=== PATIENT | female | born 1975 | race Caucasian/White ===

== ENCOUNTER 2024-06-14 07:04 | Observation (INO) ==
--- NOTE | 2024-06-01 13:49 | PAT Medication Instructions ---
Medication Instructions Date of Service June 01, 2024 Home Medications Medical Marijuana Card 1 dose UD PRN arthritis/anxiety alprazolam 0.5 mg tablet (Xanax) 0.5 mg PO UD PRN Anxiety gxuvqskpym-hsnubiquwjyqc-pdcxzxzq 50 mg-300 mg-40 mg capsule 1 cap PO UD PRN Headache dicyclomine 20 mg tablet 20 mg PO QID folic acid 1 mg tablet 1 mg PO HS gabapentin 300 mg capsule 300 mg PO UD PRN neuropathy gabapentin 800 mg tablet 800 mg PO BID golimumab 50 mg/0.5 mL subcutaneous pen injector (Simponi) 50 mg subcut UD hydroxychloroquine 200 mg tablet 200 mg PO HS lidocaine 5 % topical patch 1 patch topical UD PRN Pain montelukast 10 mg tablet (Singulair) 10 mg PO HS ondansetron HCl 4 mg tablet 4 mg PO UD PRN Nausea pantoprazole 40 mg tablet,delayed release 40 mg PO BID promethazine 25 mg tablet 25 mg PO HS rosuvastatin 10 mg tablet 10 mg PO HS sertraline 150 mg capsule 150 mg PO HS tizanidine 4 mg tablet 4 mg PO HS Muscle Spasm tretinoin 0.025 % topical cream 1 applic topical HS Continue as directed lidocaine 5 % topical patch 1 patch topical UD PRN Pain (avoid placement near surgery site prior to surgery) ASK your surgeon for instructions hqpghdlxzh-zljxywjfauwak-endkvxcl 50 mg-300 mg-40 mg capsule 1 cap PO UD PRN Headache golimumab 50 mg/0.5 mL subcutaneous pen injector (Simponi) 50 mg subcut UD STOP taking 24 hours before surgery tretinoin 0.025 % topical cream 1 applic topical HS DO NOT take the morning of surgery Medical Marijuana Card 1 dose UD PRN arthritis/anxiety dicyclomine 20 mg tablet 20 mg PO QID Take morning of surgery With a small sip of water, OTHERWISE NOTHING TO EAT OR DRINK AFTER MIDNIGHT: alprazolam 0.5 mg tablet (Xanax) 0.5 mg PO UD PRN Anxiety (if needed) dicyclomine 20 mg tablet 20 mg PO QID gabapentin 300 mg capsule 300 mg PO UD PRN neuropathy (if needed) gabapentin 800 mg tablet 800 mg PO BID ondansetron HCl 4 mg tablet 4 mg PO UD PRN Nausea (if needed) pantoprazole 40 mg tablet,delayed release 40 mg PO BID Take evening before surgery Medical Marijuana Card 1 dose UD PRN arthritis/anxiety (if needed) alprazolam 0.5 mg tablet (Xanax) 0.5 mg PO UD PRN Anxiety (if needed) dicyclomine 20 mg tablet 20 mg PO QID folic acid 1 mg tablet 1 mg PO HS gabapentin 300 mg capsule 300 mg PO UD PRN neuropathy (if needed) gabapentin 800 mg tablet 800 mg PO BID hydroxychloroquine 200 mg tablet 200 mg PO HS montelukast 10 mg tablet (Singulair) 10 mg PO HS ondansetron HCl 4 mg tablet 4 mg PO UD PRN Nausea (if needed) pantoprazole 40 mg tablet,delayed release 40 mg PO BID promethazine 25 mg tablet 25 mg PO HS rosuvastatin 10 mg tablet 10 mg PO HS sertraline 150 mg capsule 150 mg PO HS tizanidine 4 mg tablet 4 mg PO HS Muscle Spasm Other Notes If you have any questions please call us at [phone] or [phone] or [phone] or [phone]
--- NOTE | 2024-06-04 12:52 | Anesthesiology Consultation ---
Date of Service June 04, 2024 Assessment & Plan (1) Encounter for pre-operative examination: - Check test AM DOS - Infectious disease screening: Per assessment on 06/04/24: No known recent infectious disease contacts or current infectious disease symptoms. - Patient acceptable risk for surgery pending surgeon-ordered PCP preop evaluation (Dr. Perez, appt 06/10). Chart Review Chart Review: Patient seen in Pre Admission Testing Teaching & Discussion Pre-Anesthesia Teaching/Discussion Notes: Instructed NPO after midnight before surgery,except medications with 15 cc of water. Medication instructions provided according to the PAT guidelines. History Surgery Operation Date: 06/14/24 10:35 Proposed Procedures p C3-C4 Anterior Cervical Discectomy and Fusion - Sony Chen, Height/Weight Height: 5 ft 7 in Weight: 89.2 kg Allergies Allergy/AdvReac Type Severity Reaction Status Date / Time ceftriaxone [From Rocephin] Allergy Unknown Rash Verified 06/01/24 09:37 latex Allergy Unknown Itchy rash Verified 06/02/24 10:46 Vaginal cream Allergy Chemical Uncoded 06/02/24 10:46 jerez (with OTC + rx) Medications Home Medications Medication Instructions Recorded Confirmed Last Taken Medical Marijuana Card 1 dose UD PRN arthritis/anxiety 06/01/24 06/01/24 Unknown alprazolam 0.5 mg tablet (Xanax) 0.5 mg PO UD PRN Anxiety 06/01/24 06/01/24 Unknown dtmqalahmw-pnxbhrjsmdccp-ryijnzdu 1 cap PO UD PRN Headache 06/01/24 06/01/24 Unknown 50 mg-300 mg-40 mg capsule dicyclomine 20 mg tablet 20 mg PO QID 06/01/24 06/01/24 Unknown folic acid 1 mg tablet 1 mg PO HS 06/01/24 06/01/24 Unknown gabapentin 300 mg capsule 300 mg PO UD PRN neuropathy 06/01/24 06/01/24 Unknown gabapentin 800 mg tablet 800 mg PO BID 06/01/24 06/01/24 Unknown golimumab 50 mg/0.5 mL 50 mg subcut UD 06/01/24 06/01/24 Unknown subcutaneous pen injector (Simponi) hydroxychloroquine 200 mg tablet 200 mg PO HS 06/01/24 06/01/24 Unknown lidocaine 5 % topical patch 1 patch topical UD PRN Pain 06/01/24 06/01/24 Unknown montelukast 10 mg tablet 10 mg PO HS 06/01/24 06/01/24 Unknown (Singulair) ondansetron HCl 4 mg tablet 4 mg PO UD PRN Nausea 06/01/24 06/01/24 Unknown pantoprazole 40 mg tablet,delayed 40 mg PO BID 06/01/24 06/01/24 Unknown release promethazine 25 mg tablet 25 mg PO HS 06/01/24 06/01/24 Unknown rosuvastatin 10 mg tablet 10 mg PO HS 06/01/24 06/01/24 Unknown sertraline 150 mg capsule 150 mg PO HS 06/01/24 06/01/24 Unknown tizanidine 4 mg tablet 4 mg PO HS Muscle Spasm 06/01/24 06/01/24 Unknown tretinoin 0.025 % topical cream 1 applic topical HS 06/01/24 06/01/24 Unknown Past Medical History Medical History Acid reflux Anxiety and depression Cervical herniated disc "Bulging disc" History of colon polyps History of COVID-19 (2020) IBS (irritable bowel syndrome) Neuropathy Osteoarthritis Psoriatic arthritis Seasonal allergies Spinal stenosis Exercise / Class Metabolic Activity II 4-5 Yardwork/Stairs/Walk up hill (one FS: no CP, no SOB) Past Family History Family History Brother Family history of reaction to anesthesia Half brother- slow to wake Past Surgical History Surgical History History of History of cervical spinal surgery C4-7 History of colonoscopy History of endometrial ablation History of esophagogastroduodenoscopy (EGD) + dilation History of right breast biopsy + clip present History of sinus surgery History of tonsillectomy Past Anesthesia History No Hx of Anesthesia Complications * Half brother- slow to wake History of PONV No Hx of PONV and Hx of Motion Sickness STOP BANG Total 0 Social History Smoking Status: Former smoker Do You Dip or Chew Tobacco: No Smoking End Date: Quit 2001 Hx Alcohol Use: No (Remote social use hx of 20s/none current) substance use type: marijuana (Medical marijuana card/OTC CBD oil) Review of Systems Patient denies chest pain, shortness of breath, dyspnea on exertion, fever, chills, cough, wheezing, palpitations. Physical Exam Vital Signs BP 116/77 P 59 TEMP 98.0 SP02 97%RA RESP 16 Physical Full cervical extension range of motion. Full TMJ range of motion. TMD 3 finger breaths Mallampati Score I Dentition: missing molars Lungs: clear throughout to auscultation Cardiac: regular rate and rhythm, no murmurs noted Spine: normal Carotid arteries: negative bruit Extremities: no LE edema Lab Results Anesthesia Preop Results Results Anesthesia Widget: PT 10.8 Seconds (9.0-12.0) 06/04/24 PTT 29 Seconds (21-31) 06/04/24 INR 1.0 (0.9-1.1) 06/04/24 HA1c 5.6 % (4.5-5.6) 06/04/24 Blood Type O Negative 06/04/24 Antibody Screen NEGATIVE 06/04/24 Testing Laboratory Results 05/06/24 WBC 5310 H/H 11.8/36.2 PLATELETS 246 SODIUM 138 POTASSIUM 3.9 CHLORIDE 103 CO2 29.5 BUN 15.5 CREATININE 0.83 GLUCOSE 101 05/10/24 UA negative bacteria/leuk est/nitrite Electrocardiogram Date: 06/04/24 SB at 55bpm. "Otherwise normal ECG" Chest X-Ray Date: 06/04/24 FINDINGS: Cervical spinal fusion hardware. Chronic silhouette is normal. No pneumothorax or pleural effusion. Surgical clips project over the right breast laterally. Lungs appear clear. IMPRESSION: No acute process.
[2024-06-14] MEDS ORDERED: DEXAMETHASONE SOD INJ 4 MG/ML VIAL ONE (07:31)
[2024-06-14] MEDS ORDERED: LIDOCAINE 2% 2 ML VIAL/AMP(20MG/ML) INFIL ONE (07:31)
[2024-06-14] MEDS ORDERED: GLYCOPYRROLATE 0.2 MG/ML VIAL ONE (07:31)
[2024-06-14] MEDS ORDERED: MIDAZOLAM HCL 1 MG/ML 2ML VIAL ONE (07:31)
[2024-06-14] MEDS ORDERED: fentaNYL citrate PF 100 MCG/2 ML VIAL ONE (07:31)
[2024-06-14] MEDS ORDERED: ROCURONIUM BROMIDE 10 MG/ML 5 ML VIAL IV ONE (07:31)
[2024-06-14] MEDS ORDERED: ONDANSETRON INJ 2 MG/ML 2 ML VIAL ONE (07:31)
[2024-06-14] MEDS ORDERED: PROPOFOL IV EMULSION 10 MG/ML 20 ML VIAL IV ONE (07:31)
[2024-06-14] MEDS ORDERED: SUGAMMADEX SODIUM 200 MG/2 ML VIAL IV ONE (07:35)
[2024-06-14] MEDS: LR 15ML/HR IV SCH (08:32)
[2024-06-14] MEDS: GABAPENTIN 900 MG DOSE PO SCH (08:32)
[2024-06-14] MEDS: LR 60ML/HR IV SCH (08:32)
[2024-06-14] MEDS: CeleBREX 200 MG CAP PO SCH (08:33)
[2024-06-14] MEDS ORDERED: HYDROmorphone INJ 2 MG/ML SYR/VIAL IV PRN (08:56)
[2024-06-14] MEDS ORDERED: ATROPINE SULFATE 0.1 MG/ML 10ML SYR IV PRN (08:56)
[2024-06-14] MEDS ORDERED: HYDROmorphone INJ 1 MG/ML SYRINGE IV PRN ×2 (08:56→12:38)
[2024-06-14] MEDS ORDERED: ePHEDrine sulfate 50 MG/ML AMP IV PRN (08:56)
[2024-06-14] MEDS: SCOPOLAMINE 1 MG/72 HR TDSY PATCH TD ONE ×2 (09:08)
--- NOTE | 2024-06-14 09:15 | History & Physical Bridge Note ---
Date of Service June 14, 2024 History & Physical Bridge Note I have examined the patient, reviewed the History & Physical and in the interval since the performance of the History & Physical I have noted the following changes of clinical significance: no changes noted
--- NOTE | 2024-06-14 09:16 | History & Physical Report ---
Date of Service June 14, 2024 Assessment & Plan (1) Cervical stenosis of spinal canal: Plan: C3-C4 anterior cervical discectomy and fusion History of Present Illness Chief Complaint: Neck and arm pain Primary Care Provider: NO PCP This is a 48-year-old male presents with chronic persistent neck pain and arm pain after failing course of nonoperative care she is here for surgical invention. Allergies Allergy/AdvReac Type Severity Reaction Status Date / Time ceftriaxone [From Rocephin] Allergy Unknown Rash Verified 06/14/24 08:13 latex Allergy Unknown Itchy rash Verified 06/14/24 08:13 Vaginal cream Allergy Chemical Uncoded 06/14/24 08:13 jerez (with OTC + rx) Home Medications Medication Instructions Recorded Confirmed Type Medical Marijuana Card 1 dose UD PRN arthritis/anxiety 06/01/24 06/14/24 History alprazolam 0.5 mg tablet (Xanax) 0.5 mg PO UD PRN Anxiety 06/01/24 06/14/24 History gqwnfurcbp-agglxlnjrcqwy-fiaslalh 1 cap PO UD PRN Headache 06/01/24 06/14/24 History 50 mg-300 mg-40 mg capsule dicyclomine 20 mg tablet 20 mg PO QID 06/01/24 06/14/24 History folic acid 1 mg tablet 1 mg PO HS 06/01/24 06/14/24 History gabapentin 300 mg capsule 300 mg PO UD PRN neuropathy 06/01/24 06/14/24 History gabapentin 800 mg tablet 800 mg PO BID 06/01/24 06/14/24 History golimumab 50 mg/0.5 mL 50 mg subcut UD 06/01/24 06/14/24 History subcutaneous pen injector (Simponi) hydroxychloroquine 200 mg tablet 200 mg PO HS 06/01/24 06/14/24 History lidocaine 5 % topical patch 1 patch topical UD PRN Pain 06/01/24 06/14/24 History montelukast 10 mg tablet 10 mg PO HS 06/01/24 06/14/24 History (Singulair) ondansetron HCl 4 mg tablet 4 mg PO UD PRN Nausea 06/01/24 06/14/24 History pantoprazole 40 mg tablet,delayed 40 mg PO BID 06/01/24 06/14/24 History release promethazine 25 mg tablet 25 mg PO HS 06/01/24 06/14/24 History rosuvastatin 10 mg tablet 10 mg PO HS 06/01/24 06/14/24 History sertraline 150 mg capsule 150 mg PO HS 06/01/24 06/14/24 History tizanidine 4 mg tablet 4 mg PO HS Muscle Spasm 06/01/24 06/14/24 History tretinoin 0.025 % topical cream 1 applic topical HS 06/01/24 06/14/24 History cholecalciferol (vitamin D3) 125 125 mcg PO DAILY 06/14/24 06/14/24 History mcg (5,000 unit) tablet (Vitamin D3) Past Med/Surg History Problem List (Updated 06/14/24 @ 09:16 by Sony Chen, ) Cervical stenosis of spinal canal Encounter for pre-operative examination Medical History Acid reflux Anxiety and depression Cervical herniated disc "Bulging disc" History of colon polyps History of COVID-19 (2020) IBS (irritable bowel syndrome) Neuropathy Osteoarthritis Psoriatic arthritis Seasonal allergies Spinal stenosis Surgical History History of History of cervical spinal surgery C4-7 History of colonoscopy History of endometrial ablation History of esophagogastroduodenoscopy (EGD) + dilation History of right breast biopsy + clip present History of sinus surgery History of tonsillectomy Family History Brother Family history of reaction to anesthesia Half brother- slow to wake Social History Smoking Status: Former smoker Tobacco Type: Cigarettes Smoking End Date: Quit 2001; Do You Dip or Chew Tobacco: No; Hx Alcohol Use: No (Remote social use hx of 20s/none current) Preferred Language: Tamaz[place] Communication Ability: Effective Yarn Weigher Required: No Beliefs That Will Affect Care: None Current Living Situation: Spouse Feels Safe at Home: Yes Assistive Devices: Glasses Physical Exam Physical Exam: Patient is alert and oriented Heart regular in rhythm Lungs clear Results & Data Results & Data Vital Signs (Past 12 Hours) Vital Signs Temp Pulse Resp BP Pulse Ox O2 Del Method 06/14/24 08:18 36.8 C 68 20 127/68 96 Room Air
[2024-06-14] MEDS ORDERED: ACETAMINOPHEN 1000 MG/100 ML IV IV ONE (09:29)
[2024-06-14] MEDS: ceFAZolin 2000MG 2,000 MG/15 ML SYR IV SCH (09:41)
[2024-06-14] MEDS ORDERED: KETAMINE HCL 10MG/ML SYR ONE (09:51)
[2024-06-14] MEDS: FLOSEAL HEMOSTATIC MATRIX 10ML TOP ONE (10:30)
[2024-06-14] MEDS: ceFAZolin 330 MG/ML 1 GM VIAL ONE (10:40)
--- NOTE | 2024-06-14 10:55 | Operative Report ---
Post Operative Report Pre & Post Diagnosis Operation Date: 06/14/24 09:35 Pre-Op Diagnosis: Cervical stenosis of spinal canal Post-Op Diagnosis: Cervical stenosis of spinal canal I identified the patient and participated in the time-out.: Yes Procedure Operation Date: 06/14/24 09:35 Actual Procedures #1 anterior cervical discectomy with bilateral foraminotomies C3-C4. #2 anterior cervical arthrodesis C3-C4. #3 placement of globus plate and bone graft C3-C4 7 mm in height. Surgeon Sony Chen, Student Services Dean Kiley Schmidt Estimated Blood Loss 10 Findings Consistent with Post-Op Diagnosis Specimens None Indications This is a 48-year-old female who presents above-mentioned diagnosis after failing course of nonoperative care is here for surgical invention. Description of Procedure Patient met with identified informed was obtained. Patient was then taken to the operative suite underwent patient placed in supine position on the OR table with a head David longwall headgate operator. All bony prominences well-padded eyes inspected to ensure no external pressure placed upon them. This point the anterior cervical spine was prepped and draped in a sterile fashion. The assistance of fluoroscopy identified the C3-C4 disc base and a transverse incision was placed on the right anterior aspect of the cervical spine overlying the region. Blunt dissection with the assistance of bipolar cautery is then formed down to and exposing the anterior cervical spine at C3-C4. Self-retaining retractors placed. Then performed a complete discectomy of C3-C4 out to the was utilized bilaterally. [place] distracting pins utilized to assist in visualization. Removed all posterior annular fibers longitudinal ligament bilateral foraminotomies performed. Endplates burred to subcortical bleeding bone and a 7 mm globus coalition plate and bone graft filled with os design tapped in position and screwed into place. The incision was then copiously irrigated explored to ensure no damage to surrounding structures remaining bleeding. 10 round TOBY drain inserted. The incision was then closed with 2 Vicryl in the fascia and 4 Monocryl for final closure. Steri-Strips sterile dressing placed. Patient waken taken to PACU stable condition. Please note Kiley Schmidt was present out the entire procedure and all the patient positioning complex portions of the surgery and final skin closure. Spinal cord monitoring was utilized at the procedure and no changes noted. Im ordering 10 grams of Triple [place] Collagen Powder (Coolio [id number]) to treat an incision wound that was caused by a spine procedure. The incision is approximately 2 cm(W) x 4 cm(L) into the joint (D) in size and is a full thickness wound. Triple [place] collagen comes in 1 gram packets so 10 packets were ordered. Given the size of the wound, with light to moderate exudate I chose to order a 10 day supply. The patient will be provided instructions for proper application of the collagen wound kit. The patient will be asked to apply the collagen powder daily and then cover it with sterile dressings dispensed. Collagen was selected as I expect the collagen to attract monocytes and fibroblasts, act as a sacrificial substrate for MMPs, and ultimately proved a matrix for tissue and vessel growth. The collagen will act as a primary dressing in this scenario. It is medically necessary for proper healing of these wounds to improve bioavailability and contact with each wound surface, this is also to help prevent infection of wounds and promote healing ultimately leading to a better healing outcome and limit the risk of infection. I attest to the content of the Intraoperative Record and any orders documented therein. Any exceptions are noted below.
[2024-06-14] MEDS: ONDANSETRON INJ 2 MG/ML 2 ML VIAL IV PRN (11:10)
[2024-06-14] MEDS: fentaNYL citrate PF 100 MCG/2 ML VIAL IV PRN (11:19)
[2024-06-14] MEDS: PROMETHAZINE HCL 6.25 MG in SODIUM CHLORIDE 0.9% 50 ML IV PRN (11:19)
--- NOTE | 2024-06-14 11:31 | Fluoroscopy Report ---
FL cervical 2-3V CLINICAL HISTORY: C3-C4 ACDF COMPARISON STUDY: None. FLUOROSCOPY TIME: 7 seconds. Ka, r: 0.66 mGy FLUOROSCOPIC IMAGES: 2 FINDINGS: Fluoroscopy was provided during C3-C4 anterior discectomy and fusion. Linear radiodensities within the operative bed on the initial image are present on the subsequent image. Surgical drain is in place. A previous multilevel anterior discectomy and fusion is also noted. Endotracheal tube is p artially imaged IMPRESSION: Fluoroscopy provided during C3-C4 anterior discectomy and fusion. ACT 112: Negative or not required by law. Electronically signed by: Chicho Mcginnis M.D. 06/14/2024 11:29 AM
[2024-06-14] MEDS: PROMETHAZINE HCL INJ 25 MG/ML 1 ML VIAL ONE (12:01)
[2024-06-14] MEDS: SODIUM CHLORIDE 0.9% 50 ML BAG ONE (12:01)
--- NOTE | 2024-06-14 12:10 | Anesthesiology Progress Note ---
Date of Service June 14, 2024 Anesthesia Post Procedure Vital Signs Vital Signs: Temp Pulse Resp BP Pulse Ox O2 Del Method O2 Flow Rate 06/14/24 12:00 36.4 C L 58 L 12 143/82 H 100 Nasal Cannula 2 06/14/24 11:50 66 12 143/82 H 96 Room Air 0 06/14/24 11:40 65 16 102/78 97 Nasal Cannula 2 06/14/24 11:30 63 13 103/63 98 Nasal Cannula 2 06/14/24 11:20 62 16 121/63 98 Room Air 0 06/14/24 11:10 61 20 136/83 96 Room Air 0 06/14/24 11:03 36.1 C L 58 L 20 138/71 100 Oxymask 8 06/14/24 08:18 36.8 C 68 20 127/68 96 Room Air Pain Intensity Neck: Pain Intensity: 4 Transfer of Care Handoff Completed per policy Notes Mental Status: alert / awake / arousable Patient Amnestic to Procedure: Yes Nausea / Vomiting: adequately controlled Pain: adequately controlled Airway Patency, RR, SpO2: stable & adequate BP & HR: stable & adequate Hydration State: stable & adequate Anesthetic Complications: no major complications apparent and Pt Satisfied with anesthetic care
[2024-06-14] MEDS ORDERED: hydrOXYzine HCl 25 MG TAB PO PRN (12:38)
[2024-06-14] MEDS ORDERED: ALUMINUM/MAGNESIUM SUSP 30 ML UDC PO PRN (12:38)
[2024-06-14] MEDS ORDERED: bisacodyL 10 MG SUPP PR PRN (12:38)
[2024-06-14] MEDS ORDERED: diphenhydrAMINE Capsule 25 MG CAP PO PRN (12:38)
[2024-06-14] MEDS ORDERED: HYDROmorphone INJ 0.5 MG/0.5 ML SYR IV PRN (12:38)
[2024-06-14] MEDS ORDERED: FAMOTIDINE 20 MG TAB PO PRN (12:38)
[2024-06-14] MEDS ORDERED: RACEPINEPHRINE 2.25% NEBU SOLN 0.5 ML VIAL INH PRN (12:38)
[2024-06-14] MEDS ORDERED: METOCLOPRAMIDE HCL INJ 5 MG/ML 2 ML VIAL IV PRN (12:38)
[2024-06-14] MEDS ORDERED: NALOXONE HCL 0.4 MG/1 ML VIAL/CARP IV PRN (12:38)
[2024-06-14] MEDS ORDERED: oxyCODONE HCL IR 5 MG TAB (IMMEDIATE RELEASE) PO PRN (12:38)
[2024-06-14] MEDS ORDERED: PROMETHAZINE HCL 12.5 MG in SODIUM CHLORIDE 0.9% 50 ML IV PRN (12:38)
[2024-06-14] MEDS ORDERED: LORazepam 0.5 MG in SYRINGE 0.25 ML IV PRN (12:38)
[2024-06-14] MEDS ORDERED: DO NOT ADMINISTER FLU VACCINE PRN (12:38)
[2024-06-14] MEDS ORDERED: dexAMETHasone 8 MG in SYRINGE 0 ML IV PRN (12:38)
[2024-06-14] MEDS ORDERED: SOD PHOSPHATE/SOD BIPHOSPHATE ENEMA 132 ML BTL PR PRN (12:38)
[2024-06-14] MEDS ORDERED: LORazepam 0.5 MG TAB PO PRN (12:38)
[2024-06-14] MEDS ORDERED: MAGNESIUM HYDROXIDE SUSP 30 ML UDC PO PRN (12:38)
[2024-06-14] MEDS ORDERED: DO NOT ADMINISTER PNEUMOCOCCAL VACCINE PRN (12:38)
[2024-06-14] MEDS ORDERED: ONDANSETRON INJ 2 MG/ML 2 ML VIAL IV PRN (12:38)
[2024-06-14] MEDS ORDERED: ACETAMINOPHEN 500 MG TAB PO PRN (12:38)
[2024-06-14] MEDS ORDERED: ONDANSETRON 4 MG OD TAB PO PRN (12:38)
[2024-06-14] MEDS ORDERED: BUTALBITAL/ACETAMIN/CAFFEINE TAB PO PRN (12:56)
[2024-06-14] MEDS: CLINDAMYCIN/D5W 600 MG/50 ML BAG IV SCH (13:21)
[2024-06-14] MEDS: LACTATED RINGER'S 1,000 ML IV SCH (13:21)
[2024-06-14] MEDS: DICYCLOMINE HCL 20 MG TAB PO SCH (13:21)
[2024-06-14] MEDS: ACETAMINOPHEN 1,000 MG/100 ML VIAL IV PRN (14:02)
[2024-06-14] MEDS: CHECK SCOPOLAMINE PATCH PLACEMENT SCH (15:42)
[2024-06-14] MEDS: traMADol HCL 50 MG TABLET PO PRN (19:48)
[2024-06-14] MEDS: GABAPENTIN 800 MG TAB PO SCH (21:39)
[2024-06-14] MEDS: PROMETHAZINE HCL 25 MG TAB PO SCH (21:39)
[2024-06-14] MEDS: ROSUVASTATIN CALCIUM 10 MG TAB PO SCH (21:39)
[2024-06-14] MEDS: PANTOprazole 40 MG TAB PO SCH (21:40)
[2024-06-14] MEDS: tiZANidine HCL 4 MG TABLET PO SCH (21:40)
[2024-06-14] MEDS: DOCUSATE SODIUM/SENNA 50/8.6MG TAB PO SCH (21:40)
[2024-06-14] MEDS: MONTELUKAST SODIUM 10 MG TABLET PO SCH (21:40)
[2024-06-14] MEDS: FOLIC ACID 1 MG TAB PO SCH (21:40)
[2024-06-14] MEDS: SERTRALINE HCL 100 MG TABLET PO SCH (21:40)
[2024-06-15] MEDS: POLYETHYLENE (MIRALAX) 17 GM PACK PO SCH (05:50)
[2024-06-15 06:36] VITALS: RESP 16
[2024-06-15] MEDS: CHOLECALCIFEROL 125 MCG (5,000 UNITS) TAB PO SCH (08:01)
[2024-06-15] MEDS: dexAMETHasone 6 MG in SYRINGE 0 ML IV SCH (08:32)
[2024-06-15 09:41] VITALS: BP 135/85; PULSE 59; TEMP 98.1; O2SAT 95
--- NOTE | 2024-06-15 09:46 | Discharge Summary ---
Date of Service June 15, 2024 Admission HPI Per Admitting Provider This is a 48-year-old male presents with chronic persistent neck pain and arm pain after failing course of nonoperative care she is here for surgical invention. Principal Diagnosis Cervical spinal stenosis Discharge Data Allergies Allergy/AdvReac Type Severity Reaction Status Date / Time ceftriaxone [From Rocephin] Allergy Unknown Rash Verified 06/14/24 08:13 latex Allergy Unknown Itchy rash Verified 06/14/24 08:13 Vaginal cream Allergy Chemical Uncoded 06/14/24 08:13 jerez (with OTC + rx) Consultations 06/14/24 12:38 Consult Hospitalist Routine Procedures Performed Operation Date: 06/14/24 09:35 Actual Procedures p C3-C4 Anterior Cervical Discectomy and Fusion, Spinal Cord Monitoring(Not Applicable) - Sony Chen DO Ordered Studies 06/14/24 09:35 FL cervical 2-3V Routine Hospital Course (1) Cervical stenosis of spinal canal: Patient underwent anterior cervical discectomy fusion tolerated cells taken to orthopedic for postoperative. Postop Matt she is swallowing well. No hoarseness. Arm symptoms improved. Pain well-controlled. TOBY drain decreased appropriate. Extra strength testing. Subsidy discharged home. Discharge orders instructions found in chart for further review. Total Time Total Time Spent Total Time Spent (In Minutes): 20 minutes Discharge Plan Discharge Items Patient Disposition: Home - Self-Care Reason For Visit: Traumatic Herniation of Cervical Intervertebral Di Discharge Diagnosis: Cervical spinal stenosis Activity: As commented below Non-emergency contact: Primary Care Provider Call non-emergency contact if: you have any medication questions Follow-up/Referrals: PCP,NO [Primary Care Provider] - Diet: Regular Addtl Attending Provider Instructions: ACTIVITY RECOMMENDATIONS: SELF CARE INSTRUCTIONS AFTER CERVICAL FUSIONS 1. No smoking. Smoking drastically decreases the chance of a solid fusion. 2. No bending, lifting more than 5 pounds, or twisting (roll like a log when turning in bed). 3. You may shower 3 days after surgery. Thoroughly dry wound. Do not soak in the tub. 4. Cervical collar: Must be worn at all times including sleeping. You may remove the brace only to bath, eat and if you are sitting in a recliner. 5. Please walk as much as you can for exercise. Gradually increase the distance that you walk as your endurance increases. SPECIAL CARE INSTRUCTIONS: VERY IMPORTANT TO READ AND REVIEW A. Do not take any anti-inflammatory medications (i.e. Indocin, Advil, Aspirin, Naprosyn, Aleve, Motrin, etc.) as these may inhibit the chance of a solid fusion. Tylenol is okay to take. B. Your surgical incision has been closed with a cosmetic suture under the skin that will dissolve in about 6 weeks. In 14 days, you can use a pair of clean scissors and cut the suture that is left outside of the skin at the ends of your incision. C. Complications are uncommon, but please contact us if you have any signs or symptoms of: 1. wound infection (fever higher than 102.5 degrees F, redness, separation of wound, drainage, or increasing pain from the incision) 2. blood clots in legs (pain, swelling, redness and warmth in legs) 3. urinary tract infection (fever higher than 102.5 degrees, burning upon urination or increased frequency of urination) 4. nerve problems (inability to walk on your toes or heels, numbness, loss of bowel or bladder control) 5. any other symptoms that concern you. D. Please call the office at if you have any concerns or questions about your operation or recovery. MANAGING PAIN AFTER SPINAL SURGERY 1. Narcotic medication is intended for short-term use and will be provided for surgical pain. Surgical pain usually lasts for a period of 4-6 weeks. Narcotic medication includes Percocet, Vicodin, Darvocet, Tylenol #3 or Lortab. 2. Longer-term pain is more appropriately treated with non-narcotic medication such as Tylenol ES. 3. Muscle spasm is not appropriately treated with narcotics. Muscle relaxers such as Soma, Flexeril or Skelaxin can be used along with Tylenol ES. 4. Remember that we all live with some "aches and pains". This is not unusual or uncommon after an injury or as we get older. 5. We will provide appropriate medication within the normal guidelines of their prescribed use. We will also be very cautious and aware of potential abuse and extended duration of patients' medication needs. 6. Please allow 2-3 days to process refills. Prescriptions will not be mailed but must be picked up at the office. FOLLOW UP VISIT: Keep your scheduled follow-up appointment. Any questions, please call the office at . Pending Studies at Discharge: No Stand-Alone Forms: My [facility], Smoking Cessation Medications and DC Order Prescriptions: New tramadol 50 mg tablet 50 mg PO Q6H PRN (Reason: pain, moderate) Qty: 20 0RF oxycodone 5 mg tablet 5 mg PO Q6H PRN (Reason: pain) Qty: 20 0RF Continued tizanidine 4 mg Tablet 4 mg PO HS tretinoin 0.025 % Cream 1 applic TOPICAL HS ondansetron HCl 4 mg Tablet 4 mg PO UD PRN (Reason: Nausea) alprazolam [Xanax] 0.5 mg Tablet 0.5 mg PO UD PRN (Reason: Anxiety) gabapentin 800 mg Tablet 800 mg PO BID dicyclomine 20 mg Tablet 20 mg PO QID pantoprazole 40 mg Tablet,Delayed Release (Dr/Ec) 40 mg PO BID lidocaine 5 % Adhesive Patch,Medicated 1 patch TOPICAL UD PRN (Reason: Pain) Rx Instructions: leave on most painful area for up to 12 hrs promethazine 25 mg Tablet 25 mg PO HS gabapentin 300 mg Capsule 300 mg PO UD PRN (Reason: neuropathy) Patient Comments: may take 1 capsule as needed during the day folic acid 1 mg Tablet 1 mg PO HS montelukast [Singulair] 10 mg Tablet 10 mg PO HS hydroxychloroquine 200 mg Tablet 200 mg PO HS rosuvastatin 10 mg Tablet 10 mg PO HS sertraline 150 mg Capsule 150 mg PO HS Simponi 50 mg/0.5 mL Pen Injector 50 mg SUBCUT UD Patient Comments: once per month, last dose approx 3 weeks ago bmooypcsdk-dklxqsviwtwdc-rpww 50-300-40 mg Capsule 1 cap PO UD PRN (Reason: Headache) Patient Comments: hasn't been filled for awhile Medical Marijuana Card 1 dose UD PRN (Reason: arthritis/anxiety) cholecalciferol (vitamin D3) [Vitamin D3] 125 mcg (5,000 unit) Tablet 125 mcg PO DAILY Discharge Orders: Discharge Order (Routine); Ordered 06/15/24 Ordered By: Sony Chen Admission Data Admit Date/Time: 06/14/24 11:01 Attending Provider: Sony Chen Admit Provider: Sony Chen Primary Care Provider: PCP,NO Other Providers: Thea Colunga
== END 2024-06-15 11:11 | disposition home or self-care (01) ==
LOC: 3E 07:04 → ASU 07:04